=== PATIENT | female | born 1965 | race Two or more races ===

== ENCOUNTER 2018-11-06 16:23 | Inpatient (IN) | payer MEDICAID ==
[~2018-11-06] VITALS: Ht 157.5 cm; Wt 67.6 kg
[2018-11-06] MEDS ORDERED: ONDANSETRON HCL/PF 4 MG/2 ML VIAL IVP PRN (18:30)
[2018-11-06] MEDS ORDERED: HYDROCODONE/APAP 5/325MG 1 EACH TABLET PO PRN (18:30)
[2018-11-06] MEDS ORDERED: Z GUARD REMEDY 2 OZ OINT TP PRN (18:30)
[2018-11-06] MEDS ORDERED: ACETAMINOPHEN 325 MG TABLET PO PRN (18:30)
[2018-11-06] MEDS ORDERED: MAG HYDROX/AL HYDROX/SIMETH 30 ML UDC PO PRN (18:30)
[2018-11-06] MEDS ORDERED: MAGNESIUM HYDROXIDE 30 ML UDC PO PRN (18:30)
[2018-11-06] MEDS ORDERED: CELE200C PO (18:38)
[2018-11-06] MEDS ORDERED: LOSA100T31 PO (18:38)
[2018-11-06] MEDS ORDERED: LEVO137T24 PO (18:38)
[2018-11-06] MEDS ORDERED: PRAV80TA21 PO (18:38)
[2018-11-06] MEDS ORDERED: FAMO40TA7 PO (18:38)
[2018-11-06] MEDS ORDERED: DILT-11 PO (18:38)
[2018-11-06] MEDS ORDERED: ASPI-605 PO (18:38)
[2018-11-06] MEDS ORDERED: ALBU8.5H8 IH (18:38)
[2018-11-06] MEDS ORDERED: OMEP20TA5 PO (18:38)
[2018-11-06] MEDS ORDERED: CHOL20004 PO (18:38)
[2018-11-06] MEDS ORDERED: FLUT10.62 IH (18:38)
--- NOTE | 2018-11-06 18:41 | NUR ---
RECEIVED PT VIA GURNEY FROM [facility]. PT IS AWAKE, ALERT AND ORIENTED X 4. INTRODUCED SELF TO PT. ALL BELONGINGS ACCOUNTED FOR, BELONGINGS FORM SIGNED. PT IS AMBULATORY, ON 02 VIA NC 2L/MIN, SATURATING WELL, NO SIGNS OF RESPIRATORY DISTRESS NOTED. IV SITE ON LEFT AC G20 INTACT, PATENT WITH SALINE LOCK. HEAD TO TOE ASSESSMENT PERFORMED- NO SKIN ISSUES IDENTIFIED. SINUS RHYTHM ON SEMICONDUCTOR WAFERS ETCHER STRIPPER. PT REPORTS FEELING DIZZY AND NAUSEOUS X 8 DAYS. BED ALARM TURNED ON, BED IN LOW POSITION, FALL PRECAUTIONS IN PLACE, CALL LIGHT WITHIN REACH. WILL ENDORSE TO [facility] SHIFT NURSE FOR GOMEZ.
--- NOTE | 2018-11-06 19:30 | NUR ---
RN NOTES, RECEIVED PATIENT IN BED PATIENT COME FROM [facility], WILL F/U WITH MD FOR ORDERS, A/O X4 ABLE TO VERBALIZED NEEDS AND CONCERNS, BREATHING EVEN AND UNLABORED, NO SOB/ACUTE DISTRESS NOTED AT THIS TIME, NSR IN THE MONITOR WITH HR IN 60S AT THIS TIME, DENIES PAIN OR DISCOMFORT AT THIS TIME, IV SITE IN LEFT AC 20G PATENT AND INTACT, ALL NEEDS PROVIDED, CALL LIGHT W/I REACH BED LOCKED AND LOW POSITION, EDUCATE PATIENT TO CALL FOR ASSISTANCE, WILL CONTINUE TO MONITOR CLOSELY.
[2018-11-06] MEDS: IV NS 0.9% 1,000 ML IV PRN (19:34)
--- NOTE | 2018-11-06 19:50 | NUR ---
RN NOTES, DR FERRER TO ASSESS PATIENT AT THIS TIME WITH NEW ORDER FOR MECLIZINE AND ATIVAN PRN AND NEUROLOGIST CONSULT IN THE MORNING.
--- NOTE | 2018-11-06 19:50 | NUR ---
RN NOTES, PER PATIENT SHE USES BIPAP AT NIGHT AT HOME, PER DR FERRER TO LET RT KNOW SO PATIENT AN BE PLACED IN BIPAP AT NIGHT.
[2018-11-06 20:00] VITALS: BP 114/66
--- NOTE | 2018-11-06 21:30 | NUR ---
RN NOTES, PATIENT PLACED IN CPAP BY RT AT THIS TIME.
--- NOTE | 2018-11-06 22:30 | NUR ---
RN NOTE: PATIENT C/O 09/16 LEFT LEG PAIN. PER PATIENT, SHE USES VOLTAREN PATCH AT HOME. CALLED DR. CHEMA AGARWAL AND ORDERED LIDODERM PATCH INSTEAD SINCE THERE IS NO VOLTAREN PATCH AVAILABLE IN OUR PHARMACY. ORDER NOTED AND CARRIED OUT. PATIENT AGREED TO LIDODERM PATCH.
[2018-11-06] MEDS: LIDOCAINE 5% (PATCH) 1 EA PATCH TP PRN (22:50)
[2018-11-07] VITALS (7 sets, daily range): BP systolic 110–150; BP diastolic 61–86
[2018-11-07] MEDS: MECLIZINE HCL 25 MG TABLET PO PRN ×2 (01:18→08:43)
--- NOTE | 2018-11-07 05:42 | NUR ---
RN NOTES, PATIENT REQUESTING TO REMOVE CPAP AT THIS TIME, PLACED IN 02 2LPM VIA NC AT THIS TIME.
[2018-11-07 06:09] LABS: BASOPHILS # (AUTO) 0.1 /CMM (0.0-0.2); BASOPHILS % (AUTO) 0.6 % (0.0-2.0); EOSINOPHILS % (AUTO) 2.1 % (0.0-6.0); HEMATOCRIT 40 % (33-45); HEMOGLOBIN 13.4 g/dL (11.5-14.8); LYMPHOCYTES # (AUTO) 2.2 /CMM (0.8-4.8); LYMPHOCYTES % (AUTO) 27.4 % (20.0-44.0); MEAN CORPUSCULAR HGB CONC 34 g/dl (31.0-36.0); MEAN CORPUSCULAR VOLUME 92 fL (82-100); MONOCYTES # (AUTO) 0.6 /CMM (0.1-1.30); MONOCYTES % (AUTO) 7.2 % (2.0-12.0); NEUTROPHILS # (AUTO) 5.1 /CMM (1.8-8.9); NEUTROPHILS % (AUTO) 62.7 % (43.0-81.0); PLATELET COUNT (AUTO) 349 /CMM (150-450); WHITE BLOOD COUNT (AUTO) 8.2 K/uL (4.3-11.0)
[2018-11-07 06:29] LABS: CALCIUM, SERUM 8.8 mg/dL (8.5-10.1); CREATININE 0.7 mg/dL (0.6-1.3); MAGNESIUM 2.4 mg/dL (1.8-2.4); PHOSPHORUS 4.2 mg/dL (2.5-4.9); POTASSIUM 4.7 mmol/L (3.5-5.1)
--- NOTE | 2018-11-07 06:46 | NUR ---
RN NOTES, PATIENT IN BED, AWAKE AT THIS TIME, BREATHING EVEN AND UNLABORED, NO SOB/ACUTE DISTRESS NOTED AT THIS TIME, ON 2LPM VIA NC WITH OPTIMAL O2 SATURATION, PATIENT WAS ON NOCTURNAL CPAP, TOLERATED WELL, WILL HAVE NEUROLOGICAL CONSULT TODAY PER DR FERRER TODAY, NO SIGNIFICANT CHANGE IN CONDITION DURING THE NIGHT, WILL ENDORSED CONTINUITY OF CARE FOR ONCOMING NURSE.
--- NOTE | 2018-11-07 07:30 | NUR ---
RN NOTE: RECEIVED PATIENT IN BED, AWAKE, ALERT AND VERBALLY RESPONSIVE. RESPIRATION EVEN AND UNLABORED SATURATING 100% IN ROOM AIR. AFEBRILE. SKIN WARM TO TOUCH. PATIENT WAS ABLE TO AMBULATE WITH ASSISTANCE AND STANDBY ASSIST. ON ENTRY LEVEL ACCOUNT EXECUTIVE SR HR= 72. (L) AC IV SITE NOTED INTACT AND PATENT INFUSING NS @75ML/HR. HOB ELEVATED. BED ALARMED AND LOCKED AT ALL TIMES. BED ON THE LOWEST POSITION AT ALL TIMES. CALL LIGHT WITHIN REACH. NEEDS ANTICIPATED.
[2018-11-07] MEDS: IV NS 0.9% 1,000 ML IV PRN (08:51)
[2018-11-07] MEDS: CELECOXIB 100 MG CAPSULE PO SCH ×3 (11:24→17:43)
[2018-11-07] MEDS: LOSARTAN POTASSIUM 50 MG TABLET PO SCH (11:25)
--- NOTE | 2018-11-07 12:43 | NUR ---
RN NOTE: PATIENT REQUESTED TO GET HER BP CHECK. 118/71 HR= 70. SPOKE WITH KELSEA, PHARMACIST REGARDING THE PATIENT'S FLUTICASONE INHALER AND PER PATIENT SHE WILL ASK HER SON TO BRING THE INHALER TO THE HOSPITAL.
[2018-11-07] MEDS ORDERED: ALBUTEROL FS 2.5 MG/0.5 ML VIAL.NEB NEB PRN (13:30)
[2018-11-07] MEDS ORDERED: FLUTICASONE 44MCG 1 EA INHALER IH SCH (17:00)
[2018-11-07] MEDS: MECLIZINE HCL 25 MG TABLET PO SCH (17:43)
--- NOTE | 2018-11-07 18:35 | NUR ---
RN NOTE: PATIENT SIGNED THE INFORMED CONSENT FOR THE CTA BRAIN/CAROTID AND FILED TO PATIENT'S CHART. HEIDY SOTO NP (NEUROLOGIST) SPOKE WITH HER AND DISCUSSED THE TREATMENT PLAN FOR HER VIA A CITIZEN OF [place] SPEAKING STAFF. PATIENT UNDERSTOOD IT AND AGREED FOR THE PROCEDURE.
--- NOTE | 2018-11-07 19:10 | NUR ---
RN OPENING NOTE: PATIENT IN BED, AWAKE, AND VERBALLY RESPONSIVE. A&OX4. NO SOB. NO C/O PAIN. (L) AC IV SITE 20G INTACT AND PATENT RUNNING NS AT 75 MLS/HR. PATIENT ON REGULAR DIET. BED IN LOWEST POSITION. SAFETY MEASURES IMPLEMENTED. CALL LIGHT PLACED WITHIN REACH. WILL CONT. TO MONITOR FOR CHANGES.
[2018-11-08] MEDS: LIDOCAINE 5% (PATCH) 1 EA PATCH TP PRN (00:04)
[2018-11-08] MEDS: LORAZEPAM INJ 2 MG/ML VIAL IV PRN (00:44)
[2018-11-08] MEDS: IV NS 0.9% 1,000 ML IV PRN (00:54)
[2018-11-08 04:00] VITALS: BP 143/83
--- NOTE | 2018-11-08 06:50 | NUR ---
RN NOTES, PATIENT IN BED, SLEEPING AT THIS ITME, OFF FROM BIPAP AT 0550, BREATHING EVEN AND UNLABORED, NO SOB/ACUTE DISTRESS NOTED AT THIS TIME, ON 2LPM VIA NC WITH OPTIMAL O2 SATURATION, WILL HAVE CT BRAIN AND CT CAROTID TODAY, CONSENT IN CHART AND PATIENT AWARE OF PROCEDURES TODAY, NO SIGNIFICANT CHANGE IN CONDITION DURING THE NIGHT, WILL ENDORSED CONTINUITY OF CARE TO ONCOMING NURSE.
[2018-11-08 07:12] LABS: BASOPHILS % (AUTO) 0.7 % (0.0-2.0); EOSINOPHILS % (AUTO) 3.2 % (0.0-6.0); HEMATOCRIT 37 % (33-45); HEMOGLOBIN 12.5 g/dL (11.5-14.8); LYMPHOCYTES % (AUTO) 30.4 % (20.0-44.0); MEAN CORPUSCULAR HGB CONC 34 g/dl (31.0-36.0); MEAN CORPUSCULAR VOLUME 92 fL (82-100); MONOCYTES # (AUTO) 0.6 /CMM (0.1-1.30); MONOCYTES % (AUTO) 9.4 % (2.0-12.0); NEUTROPHILS # (AUTO) 3.6 /CMM (1.8-8.9); NEUTROPHILS % (AUTO) 56.3 % (43.0-81.0); PLATELET COUNT (AUTO) 311 /CMM (150-450); RED BLOOD CELL COUNT(AUTO) 4.06 MIL/uL (4.0-5.2); WHITE BLOOD COUNT (AUTO) 6.4 K/uL (4.3-11.0)
[2018-11-08 07:44] LABS: CALCIUM, SERUM 8.6 mg/dL (8.5-10.1); CREATININE 0.7 mg/dL (0.6-1.3); MAGNESIUM 2.1 mg/dL (1.8-2.4); PHOSPHORUS 4.2 mg/dL (2.5-4.9); POTASSIUM 4.4 mmol/L (3.5-5.1)
[2018-11-08 08:00] VITALS: BP 143/92
[2018-11-08 08:14] VITALS: BP 143/92
[2018-11-08 08:18] LABS: THYROID STIMULATING HORMONE 5.226 uIU/mL (0.358-3.74)
[2018-11-08] MEDS ORDERED: IOHEXOL-350 100 ML VIAL IV ONE (09:58)
[2018-11-08] MEDS ORDERED: IV NS 0.9% 250 ML IV ONE (09:58)
[2018-11-08] MEDS ORDERED: CT SWABBABLE VALVE TRANS SET 1 EA INFUS.SET MC ONE (09:58)
[2018-11-08] MEDS: FAMOTIDINE (20 MG) 20 MG TABLET PO SCH (10:19)
[2018-11-08] MEDS: PANTOPRAZOLE 40 MG TABLET.DR PO SCH (10:20)
[2018-11-08] MEDS: LOSARTAN POTASSIUM 50 MG TABLET PO SCH (10:22)
[2018-11-08] MEDS: DILTIAZEM HCL CD 240 MG PO SCH (10:22)
[2018-11-08] MEDS: ASPIRIN EC 81 MG TABLET.DR PO SCH (10:23)
[2018-11-08] MEDS: MECLIZINE HCL 25 MG TABLET PO SCH ×3 (10:23→17:23)
[2018-11-08] MEDS: ATORVASTATIN 10 MG TABLET PO SCH (10:24)
[2018-11-08] MEDS: CELECOXIB 100 MG CAPSULE PO SCH ×2 (10:24→17:23)
[2018-11-08] MEDS: LEVOTHYROXINE SODIUM 137 MCG TABLET PO SCH (10:24)
--- NOTE | 2018-11-08 10:25 | NUR ---
RN MS NOTE MORNING MEDS GIVEN LATE BECAUSE PT WAS TAKEN FOR CT HONEY AND CAROTID.
--- NOTE | 2018-11-08 13:00 | NUR ---
MS RN NOTE PT SAID SHE IS NOT FEELING DIZZY AND NAUSEA AND REFUSED TO TAKE ANTIVERT.
[2018-11-08 16:00] VITALS: BP_SYST 110; BP_SYST 133; BP_DIAS 72; BP_DIAS 82
--- NOTE | 2018-11-08 18:05 | NUR ---
RN MS NOTE PHARMACY CALLED AND ASKED IF PATIENT CAN PROVIDE FLOVENT (INHALOR) HOME MED. CALLED PATIENT'S SON EMERALD AND ASKED HIM TO BRING THE MED.
[2018-11-08] MEDS ORDERED: MECL-102 PO (18:52)
--- NOTE | 2018-11-08 19:30 | NUR ---
MS RN OPENING NOTE RECEIVED PATIENT A/O X4 WITH NO SIGNS OF DISTRESS. PATIENT IS ON ROOM AIR W/O SOB. IV ACCESS LOCATED ON THE RT FA WITH NS RUNNING AT 75ML/HR. PATIENT HAS BATHROOM PRIVILEGES WITH ASSISTANCE IF NEEDED. SKIN IS INTACT. ALL SAFETY PRECAUTIONS APPLIED. BED PLACED LOW, SIDE RAILS UP X3, AND CALL LIGHT WITHIN REACH. WILL CONTINUE TO MONITOR
[2018-11-08 20:00] VITALS: BP 137/80
--- NOTE | 2018-11-08 20:04 | NUR ---
MS RN NOTE PT RESTING COMFORTABLY. NO SIGN OF ACUTE RESPIRATORY DISTRESS OR SOB AT THIS TIME. SAFETY MEASURES IN PLACE. BED LOCKED AND LOW, SIDE RAILS UPX2, BED ALARM ON. ALL NEEDS ATTENDANT. ENDORSED TO PM NURSE FOR GOMEZ.
[2018-11-09] MEDS: LORAZEPAM INJ 2 MG/ML VIAL IV PRN (00:01)
[2018-11-09] MEDS: IV NS 0.9% 1,000 ML IV PRN (00:59)
[2018-11-09 04:00] VITALS: BP 110/42
[2018-11-09] MEDS: PANTOPRAZOLE 40 MG TABLET.DR PO SCH (06:42)
--- NOTE | 2018-11-09 07:08 | NUR ---
MS RN OPENING RECEIVED PATIENT SITTING AT EDGE OF BED, DENIES DIZZINESS. REMINDED TO CALL FOR HELP PRN AMBULATION. A/OX4, WELSH SPEAKING ONLY. ON ROOM AIR, NO RESPIRATORY DISTRESS. L FA 20G IV SITE C/D/I, INFUSING NS @75mL/HR ORDERED. CALL LIGHT WITHIN REACH, WILL CONT TO MONITOR
--- NOTE | 2018-11-09 07:34 | NUR ---
MS RN CLOSING NOTE PATIENT IN BED IN NO SIGN OF DISTRESS. PATIENT ON ROOM AIR NO SOB. PATIENT AMBULATES TO THE BATHROOM. ALL SAFETY PRECAUTION APPLIED. CALL LIGHT WITHIN REACH, BED LOCKED IN LOW POSITION, AND SIDE RAILS UP X3. ENDORSED PATIENT TO MORNING NURSE
[2018-11-09 08:00] VITALS: BP 124/73
[2018-11-09 08:45] VITALS: BP 124/73
[2018-11-09] MEDS: DILTIAZEM HCL CD 240 MG PO SCH (08:45)
[2018-11-09] MEDS: LEVOTHYROXINE SODIUM 137 MCG TABLET PO SCH (08:45)
[2018-11-09] MEDS: CELECOXIB 100 MG CAPSULE PO SCH ×2 (08:45→09:00)
[2018-11-09] MEDS: FAMOTIDINE (20 MG) 20 MG TABLET PO SCH (08:45)
[2018-11-09] MEDS: LOSARTAN POTASSIUM 50 MG TABLET PO SCH (08:45)
[2018-11-09] MEDS: ASPIRIN EC 81 MG TABLET.DR PO SCH (08:45)
[2018-11-09] MEDS: ATORVASTATIN 10 MG TABLET PO SCH (08:45)
[2018-11-09] MEDS: MECLIZINE HCL 25 MG TABLET PO SCH (08:45)
--- NOTE | 2018-11-09 12:30 | NUR ---
RN D/C NOTE DC ORDER FROM DR. FERRER TO HOME. PATIENT A/OX4, ARMEN[place] SPEAKING, USED RADHA BLOCK MAKING MACHINE OPERATOR TO DISCUSS WITH MD PRIOR TO DC. PATIENT DENIES DIZZINESS AT THIS TIME WHEN AMBULATING. BELONGINGS CHECKLIST SIGNED, ALL MEDS + CLOTHES WITH PATIENT. IV REMOVED, DRESSING APPLIED, NO BLEEDING. DC TEACHING PROVIDED ON MEDS + EMERGENCY SYMPTOMS. NO WOUND PICS TO BE TAKEN. INSTRUCTED TO FOLLOW UP WITH PCP IN 1-2 WEEKS. PATIENT'S SON HER PICKED UP
[2018-11-13] MEDS ORDERED: ERGOCALCIFEROL (VITAMIN D 2) 50,000 UNIT CAPSULE PO SCH (09:00)
== END 2018-11-09 11:00 | disposition home or self-care (01) | DRG 111 ==
LOC: TELE1 17:55 → MEDSG1 11-07 12:13
PROVIDERS: ADMIT Internal Medicine; ATTEND Internal Medicine
DX: H81.10 Benign paroxysmal vertigo, unspecified ear (principal); E03.9 Hypothyroidism, unspecified; H55.09 Other forms of nystagmus; E66.9 Obesity, unspecified; E78.5 Hyperlipidemia, unspecified; J45.909 Unspecified asthma, uncomplicated; K21.9 Gastro-esophageal reflux disease without esophagitis; I10 Essential (primary) hypertension; M19.90 Unspecified osteoarthritis, unspecified site; Z68.27 Body mass index [BMI] 27.0-27.9, adult
CPT/HCPCS: 36415; 70496-TC; 70498-TC; 80048-TC; 83735-TC; 84100-TC; 84443-TC; 85025-TC; 87081-TC; 93307-TC; 94760-TC; 97116-TC; 97530-TC; G0378; J2060; J7030; J7050; J8597; Q9967